=== PATIENT | male | born 1975 | race Caucasian/White ===

== ENCOUNTER → 2024-12-04 10:57 | Outpatient (BNVA) | payer BC, SELFPAY | PROVIDERS: Visit Provider Psychiatry & Neurology Neurology | DX: G43.909 Migraine, unspecified, not intractable, without status migrainosus (principal); G43.809 Other migraine, not intractable, without status migrainosus | CPT/HCPCS: 36415; 80053; 82306; 82607; 82746; 83735; 83921; 84439; 84443; 84481; 85025 ==

== ENCOUNTER 2024-12-26 12:28 | Outpatient (CLI) | payer BC, SELFPAY ==
--- NOTE | 2024-12-26 13:00 | MR_ITS ---
WS: [id number] MRI HEAD WITH CONTRAST TECHNIQUE: Sagittal T1, T2 axial, T2 axial FLAIR, axial susceptibility weighted imaging, axial diffusion weighted images, and coronal T2 images were obtained. Pre and post-T1 axial and post T1 coronal images. ADC and FSPGR images. CLINICAL INFORMATION: G43.909 - Migraine, unspecified, not intractable, without... COMPARISON: None. FINDINGS: No evidence of restricted diffusion to suggest acute ischemia. No suspicious intracranial signal abnormalities. Minimal periventricular white matter changes. One or 2 tiny punctate foci of T2 hyperintensity in the frontal white matter. No significant parenchymal volume loss. Normal posterior fossa. Normal vascular flow voids at the skull base. No extra-axial fluid collections. No evidence of mass or mass effect. Paranasal sinuses and mastoid air cells are well aerated. No hemosiderin. Normal optic chiasm and pituitary infundibulum. No abnormal gadolinium enhancement. Incidental venous angioma RIGHT parietal lobe MR/MR head wo/w con [id number] IMPRESSION: 1. No evidence of restricted diffusion to suggest acute ischemia. 2. Minimal periventricular white matter changes. One or 2 tiny foci of T2 hype rintensity in the frontal white matter can be seen with migraine headaches. 3. Otherwise no suspicious intracranial signal abnormalities. 4. No hemosiderin. 5. Incidental venous angioma RIGHT parietal lobe
[2024-12-26] MEDS: gadobenate dimeglumine 20 mL vial IV (13:39)
== END 2024-12-26 12:29 | disposition home or self-care (01) ==
PROVIDERS: Visit Provider Psychiatry & Neurology Neurology
DX: G43.909 Migraine, unspecified, not intractable, without status migrainosus (principal); D18.02 Hemangioma of intracranial structures
CPT/HCPCS: 70553